=== PATIENT | female | born 1945 | race Caucasian/White ===

== ENCOUNTER → 2018-12-27 14:38 | Outpatient (CLI) | payer MEDICARE, SELFPAY ==
--- NOTE | 2018-12-27 | DI.US.S_ITS ---
PROCEDURE: US ABDOMEN COMPLETE INDICATIONS: FLANK PAIN TECHNIQUE: Real-time scanning was performed of the abdominal and retroperitoneal organs, with image documentation. COMPARISON: None. FINDINGS: Liver: Liver is normal in size and homogeneous in echotexture. Gallbladder: Multiple gallstones present. No gallbladder wall thickening or pericholecystic fluid. Negative sonographic Mae sign. Biliary ducts: Intrahepatic bile ducts are non-dilated. Extrahepatic bile duct caliber measures 7.8 mm. Normal is 6-7 mm or less in diameter, or 10 mm or less post-cholecystectomy. Pancreas: Visualized portions of the pancreas are sonographically normal. Spleen: Spleen is normal in size and homogeneous in echotexture. Kidneys: Kidneys are normal in size and echotexture. Right kidney measures 10.0 cm long; left kidney measures 11.0 cm long. No hydronephrosis with possible 5 mm nonobstructing calcification involving the superior pole of the right kidney. No solid masses. Aorta: Visualized aorta is normal in caliber at less than 3 cm. Iliacs: Proximal common iliac arteries are normal in caliber at less than 2.5 cm. IVC: Intrahepatic inferior vena cava is patent. Miscellaneous: No free abdominal fluid. IMPRESSION: 1. Increased hepatic echogenicity noted possibly related to hepatic steatosis but other sources of hepatocellular disease cannot be excluded. Recommend clinical correlation. 2. Cholelithiasis without acute cholecystitis. 3. Possible 6 mm nonobstructing right renal calcification. Dictated by: Chuy RAJAN Interpreted: Soila Ken MD on 12/27/2018 at 15:53 Approved by: Soila Ken M.D. on 12/27/2018 at 16:08
== END ==
PROVIDERS: PCP Family Medicine; Visit Provider Family Medicine
DX: R10.9 Unspecified abdominal pain (principal); K80.20 Calculus of gallbladder without cholecystitis without obstruction
CPT/HCPCS: 76700

== ENCOUNTER → 2021-03-12 08:34 | Outpatient (CLI) | payer MEDICARE, SELFPAY ==
[2021-03-12 20:24] LABS: Vitamin B12 542 pg/mL (239-931)
== END ==
PROVIDERS: PCP Family Medicine; Visit Provider Family Medicine
DX: E53.8 Deficiency of other specified B group vitamins (principal)
CPT/HCPCS: 82607

== ENCOUNTER → 2023-04-07 09:30 | Outpatient (CLI) | payer MEDICARE, SELFPAY ==
[2023-04-07 20:12] LABS: Alanine Aminotransferase 20 IU/L (<35); Albumin 3.7 g/dL (3.5-5.0); Albumin Globulin Ratio 1.5 (1.0-2.8); Alkaline Phosphatase 63 U/L (38-126); Aspartate Aminotransferase 30 IU/L (14-36); BUN Creatinine Ratio 24.7 (6-22); Bilirubin Total 0.4 mg/dL (0.2-1.3); Blood Urea Nitrogen 22 mg/dL (7-17); C-Reactive Protein Quant 1.9 mg/dL (<1.0); Calcium 9.5 mg/dL (8.4-10.2); Carbon Dioxide 26 mmol/L (22-32); Chloride 103 mmol/L (98-107); Estimated Glomerular Filt Rate > 60 mL/min (>60); Globulin 2.5 g/dL (1.7-4.1); Glucose 144 mg/dL (80-110); HEMOLYSIS < 15 (0-50); Sodium 139 mmol/L (137-145); Total Protein 6.2 g/dL (6.3-8.2)
[2023-04-07 20:13] LABS: Hematocrit 37.7 % (36-46); Hemoglobin 12.9 g/dL (12.0-16.0); Mean Corpuscular HGB Conc 34.1 % (30-36); Mean Corpuscular Volume 93.9 fL (80-100); Platelet Count 181 X10^3/uL (150-400); Red Blood Cell Count 4.02 X10^6/uL (4.0-5.2); Red Cell Distribution Width 13.3 % (11.6-14.8); White Blood Cell Count 9.3 X10^3/uL (4.5-11.0)
[2023-04-07 20:26] LABS: Erythrocyte Sedimentation Rate 14 MM/HR (0-20)
[2023-04-07 20:39] LABS: Total Cells Counted 100
[2023-04-07 20:43] LABS: RBC Morphology Normal Morphology
[2023-04-07 21:16] LABS: Neutrophils Absolute Manual 5952 /uL (3000-5900)
== END ==
PROVIDERS: PCP Family Medicine; Visit Provider Physician Assistant
DX: M54.2 Cervicalgia (principal); I10 Essential (primary) hypertension; R51.9 Headache, unspecified
CPT/HCPCS: 80053; 85025; 85651; 86140

== ENCOUNTER → 2024-04-04 08:12 | Outpatient (CLI) | payer MEDICARE, SELFPAY ==
[2024-04-04 19:10] LABS: HEMOLYSIS < 15 (0-50)
[2024-04-04 19:11] LABS: Add Manual Diff / Slide Review NO; Basophils Absolute Auto 0 /uL (0-100); Basophils Percent Auto 0.4 % (0-2); Eosinophils Absolute Auto 100 /uL (0-450); Eosinophils Percent Auto 1.1 % (2-4); Hematocrit 38.9 % (36-46); Lymphocytes Absolute Auto 2700 /uL (1100-4500); Lymphocytes Percent Auto 27.7 % (25-40); Mean Corpuscular HGB Conc 33.3 % (30-36); Mean Corpuscular Hemoglobin 31.6 PG (26-34); Mean Corpuscular Volume 94.8 fL (80-100); Monocytes Absolute Auto 600 /uL (0-900); Monocytes Percent Auto 5.9 % (3-14); Neutrophils Absolute Auto 6300 /uL (1500-7000); Neutrophils Percent Auto 64.9 % (50-75); Platelet Count 179 X10^3/uL (150-400); Red Cell Distribution Width 13.7 % (11.6-14.8); White Blood Cell Count 9.7 X10^3/uL (4.5-11.0)
[2024-04-04 19:16] LABS: BUN Creatinine Ratio 23.1 (6-22); Blood Urea Nitrogen 18 mg/dL (7-17); Calcium 9.3 mg/dL (8.4-10.2); Carbon Dioxide 27 mmol/L (22-32); Chloride 103 mmol/L (98-107); Cholesterol 166 mg/dL (140-199); Estimated Glomerular Filt Rate > 60 mL/min (>60); Glucose 103 mg/dL (80-110); HDL Cholesterol 39 mg/dL (40-60); Potassium 3.7 mmol/L (3.4-5.1); Sodium 138 mmol/L (137-145); Triglycerides 416 mg/dL (35-150); Uric Acid 6.4 mg/dL (2.5-6.2)
[2024-04-04 20:04] LABS: Vitamin B12 686 pg/mL (239-931)
== END ==
PROVIDERS: PCP Family Medicine; Referring Provider Family Medicine; Visit Provider Family Medicine
DX: E87.6 Hypokalemia (principal); I10 Essential (primary) hypertension; E53.8 Deficiency of other specified B group vitamins; E79.0 Hyperuricemia without signs of inflammatory arthritis and tophaceous disease; E87.5 Hyperkalemia
CPT/HCPCS: 80048; 80061; 82607; 84550; 85025

== ENCOUNTER → 2024-06-15 08:58 | Outpatient (CLI) | payer MEDICARE, SELFPAY ==
[2024-06-15 19:45] LABS: Cholesterol 164 mg/dL (140-199); HDL Cholesterol 39 mg/dL (40-60); LDL Cholesterol Calculated 54 mg/dL (<100); Triglycerides 356 mg/dL (35-150)
== END ==
PROVIDERS: PCP Family Medicine; Visit Provider Family Medicine
DX: E78.2 Mixed hyperlipidemia (principal)
CPT/HCPCS: 80061

== ENCOUNTER → 2024-09-06 11:55 | Outpatient (CLI) | payer MEDICARE, SELFPAY ==
[2024-09-06 19:21] LABS: BUN Creatinine Ratio 22.4 (6-22); Blood Urea Nitrogen 22 mg/dL (7-17); Calcium 9.4 mg/dL (8.4-10.2); Carbon Dioxide 30 mmol/L (22-32); Chloride 103 mmol/L (98-107); Estimated Glomerular Filt Rate 58 mL/min (>60); Glucose 103 mg/dL (80-110); HEMOLYSIS 18 (0-50); Potassium 3.8 mmol/L (3.4-5.1); Sodium 137 mmol/L (137-145)
== END ==
PROVIDERS: PCP Family Medicine; Visit Provider Family Medicine
DX: E87.6 Hypokalemia (principal)
CPT/HCPCS: 80048

== ENCOUNTER → 2024-11-29 09:01 | Outpatient (CLI) | payer MEDICARE, SELFPAY ==
[2024-11-29 18:49] LABS: Add Manual Diff / Slide Review NO; Basophils Absolute Auto 0 /uL (0-100); Basophils Percent Auto 0.4 % (0-2); Eosinophils Absolute Auto 100 /uL (0-450); Eosinophils Percent Auto 1.5 % (2-4); Hematocrit 37.4 % (36-46); Hemoglobin 12.8 g/dL (12.0-16.0); Lymphocytes Absolute Auto 2600 /uL (1100-4500); Lymphocytes Percent Auto 26.4 % (25-40); Mean Corpuscular HGB Conc 34.1 % (30-36); Mean Corpuscular Hemoglobin 32.3 PG (26-34); Mean Corpuscular Volume 94.7 fL (80-100); Monocytes Absolute Auto 700 /uL (0-900); Monocytes Percent Auto 6.8 % (3-14); Neutrophils Absolute Auto 6500 /uL (1500-7000); Neutrophils Percent Auto 64.9 % (50-75); Platelet Count 168 X10^3/uL (150-400); Red Blood Cell Count 3.95 X10^6/uL (4.0-5.2); Red Cell Distribution Width 13.5 % (11.6-14.8)
[2024-11-29 18:50] LABS: BUN Creatinine Ratio 25.3 (6-22); Blood Urea Nitrogen 20 mg/dL (7-17); Calcium 9.5 mg/dL (8.4-10.2); Carbon Dioxide 31 mmol/L (22-32); Chloride 100 mmol/L (98-107); Cholesterol 155 mg/dL (140-199); Estimated Glomerular Filt Rate > 60 mL/min (>60); Glucose 121 mg/dL (80-110); HDL Cholesterol 40 mg/dL (40-60); HEMOLYSIS < 15 (0-50); LDL Cholesterol Calculated 54 mg/dL (<100); Potassium 3.5 mmol/L (3.4-5.1); Sodium 138 mmol/L (137-145); Triglycerides 306 mg/dL (35-150)
== END ==
PROVIDERS: PCP Family Medicine; Visit Provider Family Medicine
DX: I10 Essential (primary) hypertension (principal); E78.2 Mixed hyperlipidemia; E79.0 Hyperuricemia without signs of inflammatory arthritis and tophaceous disease; E87.6 Hypokalemia
CPT/HCPCS: 80048; 80061; 85025

== ENCOUNTER → 2025-07-02 08:21 | Outpatient (CLI) | payer MEDICARE, SELFPAY ==
[2025-07-02 18:56] LABS: Add Manual Diff / Slide Review NO; Hematocrit 41.7 % (36-46); Hemoglobin 14.2 g/dL (12.0-16.0); Lymphocytes Absolute Auto 2400 /uL (1100-4500); Mean Corpuscular HGB Conc 34.0 % (30-36); Mean Corpuscular Hemoglobin 32.1 PG (26-34); Mean Corpuscular Volume 94.3 fL (80-100); Platelet Count 211 X10^3/uL (150-400)
[2025-07-02 19:10] LABS: Hemoglobin A1C% w Est Avg Glu 5.9 % (4.0-6.0)
[2025-07-02 19:14] LABS: Blood Urea Nitrogen 23 mg/dL (7-17); Calcium 10.0 mg/dL (8.4-10.2); Carbon Dioxide 29 mmol/L (22-32); Chloride 100 mmol/L (98-107); Cholesterol 184 mg/dL (140-199); Estimated Glomerular Filt Rate > 60 mL/min (>60); Glucose 111 mg/dL (70-99); HDL Cholesterol 46 mg/dL (40-60); HEMOLYSIS 19 (0-50); Potassium 3.8 mmol/L (3.4-5.1); Sodium 138 mmol/L (137-145); Triglycerides 227 mg/dL (35-150)
[2025-07-03 14:31] LABS: Microalbumi Creatinin Ratio Ur 17.0 ug/mg CR (<30)
== END ==
PROVIDERS: PCP Family Medicine; Visit Provider Family Medicine
DX: E53.8 Deficiency of other specified B group vitamins (principal); I10 Essential (primary) hypertension; E79.0 Hyperuricemia without signs of inflammatory arthritis and tophaceous disease; K21.9 Gastro-esophageal reflux disease without esophagitis; E78.2 Mixed hyperlipidemia; R73.03 Prediabetes
CPT/HCPCS: 80048; 80061; 82043; 82570; 83036; 85025